=== PATIENT | male | born 1990 | race Caucasian/White ===

== ENCOUNTER 2023-03-18 22:35 | Emergency (ER) | payer BC ==
[2023-03-18] MEDS ORDERED: Lidocaine 1% MPF 2 ML VIAL ONE (23:25)
[2023-03-18] MEDS ORDERED: Boostrix 0.5 ML (Tdap) VIAL (>/=7 yrs of age) ONE (23:46)
== END 2023-03-19 00:32 | disposition home or self-care (01) ==
LOC: ERS 22:35
DX: S66.222A Laceration of extensor muscle, fascia and tendon of left thumb at wrist and hand level, initial encounter (principal); W27.8XXA Contact with other nonpowered hand tool, initial encounter; Y99.0 Civilian activity done for income or pay
CPT/HCPCS: 12001; 90471; 90715